=== PATIENT | male | born 1955 | race Caucasian/White ===

== ENCOUNTER → 2019-12-14 | Outpatient (CLI) | payer BC ==
--- NOTE | 2019-12-11 08:50 | NUR ---
LMOM WITH DATE TIME AND INSTRUCTIONS FOR PROCEDURE. CALL BACK NUMBER IONCLUDED
[2019-12-14] VITALS (10 sets, daily range): BP systolic 116–153; BP diastolic 60–86; PULSE 51–60
[~2019-12-14] VITALS: Ht 170.2 cm; Wt 88.1 kg
[~2019-12-14] MED LIST: FLOMAX 0.40.4 MG/CAP PO; MULTI VITAMINS1 TAB PO
--- NOTE | 2019-12-14 09:10 | NUR ---
pt to ct per ambulation. Pt positioned on ct table in supine position. Monitors applied and O2 on at 2l/nc.
--- NOTE | 2019-12-14 09:26 | NUR ---
Specimen obtained by Dr Randolph and placed in formalin. Specimen labeled. Dr Randolph placed gel foam into biopsy site.
== END ==
LOC: COL.RAD 08:00
DX: R94.5 Abnormal results of liver function studies (principal)